=== PATIENT | female | born 1970 | race Asian ===

== ENCOUNTER → 2020-08-28 16:27 | Outpatient (CLI) | payer BC, SELFPAY ==
--- NOTE | ~2020-08-28 | MM_ITS ---
EXAMINATION: MM screening ilir BI w mina HISTORY: Screening TECHNIQUE: Craniocaudal and mediolateral oblique 3-D tomosynthesis images were obtained and synthetic 2-D images were generated. CAD analysis was submitted and interpreted. COMPARISON: Comparison to multiple prior studies sequentially, with oldest reviewed study dated 07/2013. BREAST PARENCHYMAL COMPOSITION: The breasts are extremely dense, which lowers the sensitivity of mamm ography FINDINGS: There is no evidence of suspicious mass, calcification, or architectural distortion to sugg est malignancy in either breast. There has been no suspicious interval change. IMPRESSION: 1. No mammographic evidence of malignancy. 2. Recommend routine screening mammography in one year. BI-RADS Category 1: Negative Reviewed, dictated and finalized at location A.
== END ==
PROVIDERS: Visit Provider Advanced Practice Midwife
DX: Z12.31 Encounter for screening mammogram for malignant neoplasm of breast (principal)
CPT/HCPCS: 77063; 77067

== ENCOUNTER → 2021-10-30 16:44 | Outpatient (CLI) | payer BC, SELFPAY ==
--- NOTE | ~2021-10-30 | MM_ITS ---
EXAMINATION: MM screening ilir BI w mina HISTORY: Screening mammogram, family history of breast cancer in her mother. TECHNIQUE: Craniocaudal and mediolateral oblique 3-D tomosynthesis images were obtained and synthetic 2-D images were generated. CAD analysis was submitted and interpreted. COMPARISON: 08/28/2020, 05/27/2019, 03/30/2018 BREAST PARENCHYMAL COMPOSITION: There are scattered areas of fibroglandular density. FINDINGS: There is no suspicious mass, calcification, or architectural distortion to suggest malignan cy in either breast. There has been no suspicious interval change. IMPRESSION: 1. No mammographic evidence of malignancy. 2. Recommend routine screening mammography in one year. BI-RADS Category 1: Negative Reviewed, dictated and finalized at location A.
== END ==
PROVIDERS: PCP Family Medicine Adolescent Medicine; Visit Provider Advanced Practice Midwife
DX: Z12.31 Encounter for screening mammogram for malignant neoplasm of breast (principal)
CPT/HCPCS: 77063; 77067

== ENCOUNTER 2021-12-18 08:32 | Outpatient (CLI) | payer BC, SELFPAY ==
--- NOTE | 2021-12-18 11:00 | NEURO_ITS ---
Impression: # Insulin dependent diabetic complains of numbness. # Bilateral Carpal Tunnel Syndrome, left more than right. # Right non-localizing ulnar neuropathy. # Mildly abnormal needle/EMG exam. Nerve Conduction Studies Anti Sensory Summary Table Stim Site NR Peak (ms) P-T Amp (?V) Site1 Site2 Delta-P (ms) Dist (cm) Maykel (m/s) Left Median Anti Sensory (2-3nd Digit) Wrist 5.3 11.3 Wrist 2-3nd Digit 5.3 14.0 26 Wrist 5.5 9.0 Wrist 2-3nd Digit 5.3 14.0 26 Right Median Anti Sensory (2-3nd Digit) Wrist 3.8 82.6 Wrist 2-3nd Digit 3.8 14.0 37 Wrist 4.0 92.5 Wrist 2-3nd Digit 3.8 14.0 37 Left Radial Anti Sensory (Base 1st Digit) Wrist 2.0 27.0 Wrist Base 1st Digit 2.0 0.0 Right Radial Anti Sensory (Base 1st Digit) Wrist 3.0 7.5 Wrist Base 1st Digit 3.0 0.0 Left Ulnar Anti Sensory (5th Digit) Wrist 3.0 36.8 Wrist 5th Digit 3.0 14.0 47 Right Ulnar Anti Sensory (5th Digit) Wrist 2.5 61.0 Wrist 5th Digit 2.5 14.0 56 Motor Summary Table Stim Site NR Onset (ms) O-P Amp (mV) Site1 Site2 Delta-0 (ms) Dist (cm) Maykel (m/s) Left Median Motor (Abd Poll Brev) Wrist 4.4 2.6 Elbow Wrist 5.3 29.0 55 Elbow 9.7 2.8 Right Median Motor (Abd Poll Brev) Wrist 3.7 1.9 Elbow Wrist 5.3 29.0 55 Elbow 9.0 1.3 Left Ulnar Motor (Abd Dig Minimi) Wrist 2.6 9.4 A Elbow Wrist 5.1 30.0 59 A Elbow 7.7 8.3 Right Ulnar Motor (Abd Dig Minimi) Wrist 2.0 9.5 A Elbow Wrist 5.9 29.0 49 A Elbow 7.9 8.3 B Elbow Wrist 3.9 18.0 46 B Elbow 5.9 8.2 F Wave Studies NR F-Lat (ms) L-R F-Lat (ms) Left Median (Mrkrs) (Abd Poll Brev) 27.73 0.00 Right Median (Mrkrs) (Abd Poll Brev) 27.73 0.00 Left Ulnar (Mrkrs) (Abd Dig Min) 27.74 0.11 Right Ulnar (Mrkrs) (Abd Dig Min) 27.85 0.11 EMG Side Muscle Nerve Root Ins Act Fibs Amp Dur Recrt Comment Right 1stDorInt Ulnar C8-T1 Nml Nml Nml >12ms Reduced Right Ext Indicis Radial (Post Int) C7-8 Nml Nml Nml Nml Nml Right Ext Digitorum Radial (Post Int) C7-8 Nml Nml Nml Nml Nml Right BrachioRad Radial C5-6 Nml Nml Nml Nml Nml Right PronatorTeres Median C6-7 Nml Nml Nml Nml Nml Right Abd Poll Brev Median C8-T1 Nml Nml Nml Nml Nml Left 1stDorInt Ulnar C8-T1 Nml Nml Nml Nml Nml Left Ext Indicis Radial (Post Int) C7-8 Nml Nml Nml Nml Nml Left Ext Digitorum Radial (Post Int) C7-8 Nml Nml Nml Nml Nml Left BrachioRad Radial C5-6 Nml Nml Nml Nml Nml Left PronatorTeres Median C6-7 Nml Nml Nml Nml Nml Left Abd Poll Brev Median C8-T1 Nml Nml Nml >12ms Reduced MTDD
== END 2021-12-18 08:33 | disposition home or self-care (01) ==
PROVIDERS: PCP Family Medicine Adolescent Medicine; Visit Provider Nurse Practitioner Family
DX: G62.9 Polyneuropathy, unspecified (principal); G56.20 Lesion of ulnar nerve, unspecified upper limb; G56.03 Carpal tunnel syndrome, bilateral upper limbs
CPT/HCPCS: 95886; 95911

== ENCOUNTER 2022-06-06 00:38 | Day surgery (SDC) | payer BC, SELFPAY ==
[2022-05-27 11:03] VITALS: BMI 22.4
[2022-06-06 09:28] VITALS: BP 116/60; PULSE 87; RESP 18; TEMP 36.4; O2SAT 100; BMI 22.6
[2022-06-06 09:39] LABS: Glucose Point of Care 70 mg/dl (65-105)
[2022-06-06] MEDS: LACTATED RINGERS 1,000 ML 150 ML IV CONT (09:47)
--- NOTE | 2022-06-06 09:48 | SUR.PREOP ---
Patient with blood glucose of 70. Wearing an insulin pump with basal rate. States 70 is not unusual and her blood glucose levels fluctuate all day and she does not turn off her basal rate. Patient states she is sometimes in the 60s and asymptomatic.
--- NOTE | 2022-06-06 09:49 | SUR.PREOP ---
Dr. Rueda notified of blood glucose of 70 and insulin pump.
--- NOTE | 2022-06-06 09:54 | WPDANESEPPF ---
Anes - Initial Pre Proc Eval Procedure: Operation Date: 06/06/22 10:45 Proposed Procedures p Screening Colonoscopy - Peewee Brewster MD Date/Time: 06/06/22 09:54 Surgeon: Peewee Breswter MD Pre Op Diagnosis: neoplasm screening Patient Data Age: 51 Gender: F Height: 1.6 m Weight: 58 kg Last Vital Signs Temp 36.4 C 06/06/22 09:28 Pulse 87 06/06/22 09:28 Resp 18 06/06/22 09:28 BP 116/60 06/06/22 09:28 Pulse Ox 100 06/06/22 09:28 O2 Del Method Room Air 06/06/22 09:28 Allergies Allergy/AdvReac Type Severity Reaction Status Date / Time doxycycline AdvReac Unknown Nausea Verified 06/06/22 09:27 Home Medications Medication Instructions Recorded Confirmed Type blood-glucose meter,continuous #1 ea 08/01/21 06/06/22 Rx (Dexcom G6 Senior Ui Ux Developer misc) blood-glucose transmitter (Dexcom #1 ea 08/01/21 06/06/22 Rx G6 Transmitter device) subcutaneous insulin pump (t:slim #1 ea 01/15/22 06/06/22 Rx X2 Basal-IQ Insulin Pump) insulin aspart U-100 100 unit/mL See Rx Instructions .Route 03/20/22 06/06/22 Rx subcutaneous solution (Novolog .COMPLEX #40 mL U-100 Insulin aspart) blood-glucose sensor (Dexcom G6 #9 ea 04/14/22 06/06/22 Rx Sensor device) biotin 2,500 mcg tablet 2,500 mcg PO DAILY 05/27/22 06/06/22 History cetirizine 10 mg tablet (Zyrtec) 10 mg PO DAILY PRN Allergy Symptoms 05/27/22 06/06/22 History cholecalciferol (vitamin D3) 25 25 mcg PO DAILY 05/27/22 06/06/22 History mcg (1,000 unit) tablet ferrous sulfate 325 mg (65 mg 325 mg PO DAILY 05/27/22 06/06/22 History iron) tablet (Iron (ferrous sulfate)) magnesium 250 mg tablet 250 mg PO DAILY 05/27/22 06/06/22 History multivitamin with minerals-folic 1 tablet PO DAILY 12/13/22 12/23/22 History acid 0.4 mg tablet omega-3 fatty acids-vitamin E 1 cap PO DAILY 05/27/22 06/06/22 History 1,000 mg capsule vitamin A 10,000 unit tablet 10,000 unit PO DAILY 05/27/22 06/06/22 History vitamin B complex 1 tablet PO DAILY 05/27/22 06/06/22 History vitamin E 100 unit tablet 100 unit PO DAILY 05/27/22 06/06/22 History zinc 100 mg tablet 100 mg PO DAILY 05/27/22 06/06/22 History Laboratory Tests 06/06/22 09:36 POC Capillary Glucose 70 mg/dl mg/dl (65-105) Patient hx anesthesia problems: none Family hx anesthesia problems: none Results Review: All pre-operative results and documents have been reviewed as part of the pre-operative evaluation. [facility] Past Medical History Medical History Bilateral carpal tunnel syndrome (~11/2021) Encounter for immunization Hyperlipidemia due to type 1 diabetes mellitus Long-term insulin use Neuropathy 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, with senior care current use of insulin pump Ulnar nerve abnormality Surgical History Surgical History No pertinent past surgical history Family History Family History Father Family history of diabetes mellitus in first degree relative Social History Social History Smoking packs per day: 0.25 Smoking cigarettes per day: 5.0 Years smoked: 10 Smoking pack-years: 2.50 Smoking status: Former smoker Tobacco type: cigarettes Second hand tobacco smoke exposure: No Alcohol intake: current Alcohol use details: occasional Substance use: never Substance use type: does not use Living arrangements: alone Gender identity (if verbalized by the patient): Female Spiritual care concerns: No Anes - Eval Final PreProcedure Day of Procedure 06/06/22 09:54 Patient weight: normal Heart: regular rate and rhythm Lungs: clear to auscultation Airway: Mallampati scale class II Neurological: alert and oriented Last oral intake: >/= 8 hours ASA classific
--- NOTE | 2022-06-06 10:15 | PM.HPGS ---
History of Present Illness History of Present Illness Consent: Risks, benefits, and alternatives have been discussed and questions answered. Patient agrees to proceed with procedure. Chief complaint: neoplasm screening Narrative: Beth Clayton is a 51 year old female here for first screening colonoscopy Review of Systems Constitutional: Constitutional: Denies headache(s) and Denies weakness Eyes: Eyes: Denies blurry vision ENT: Reports Normal hearing present, Denies headache(s) and Denies neck pain Cardiovascular: Cardiovascular: Denies chest pain and Denies dyspnea Respiratory: Respiratory: Denies dyspnea Gastrointestinal: Gastrointestinal: Reports no additional gastrointestinal complaints Genitourinary: Genitourinary: Denies dysuria Musculoskeletal: Musculoskeletal: Denies neck pain Integumentary/Breasts: Skin/Breast: Denies dry skin Neurologic: Reports Normal hearing present, Denies headache(s) and Denies weakness Psychiatric: Psychiatric: Denies anxiety Endocrine: Endocrine: Denies change in body appearance Hematologic/Lymphatic: Hematologic/Lymphatic: Denies easy bleeding Allergic/Immunologic: Allergic/Immunologic: Denies urticaria PMF Past Medical History Medical History (Updated 06/06/22 @ 10:15 by Peewee Brewster MD) Bilateral carpal tunnel syndrome (~11/2021) Colon cancer screening Encounter for immunization Hyperlipidemia due to type 1 diabetes mellitus Long-term insulin use Neuropathy 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, 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 Ulnar nerve abnormality Surgical History Surgical History No pertinent past surgical history Family History Family History Father Family history of diabetes mellitus in first degree relative Social History Social History Smoking packs per day: 0.25 Smoking cigarettes per day: 5.0 Years smoked: 10 Smoking pack-years: 2.50 Smoking status: Former smoker Tobacco type: cigarettes Second hand tobacco smoke exposure: No Alcohol intake: current Alcohol use details: occasional Substance use: never Substance use type: does not use Living arrangements: alone Gender identity (if verbalized by the patient): Female Spiritual care concerns: No Meds Home Medications and Allergies Home Medications Medication Instructions Recorded Confirmed Type blood-glucose meter,continuous #1 ea 08/01/21 06/06/22 Rx (Dexcom G6 Broadband Engineer misc) blood-glucose transmitter (Dexcom #1 ea 08/01/21 06/06/22 Rx G6 Transmitter device) subcutaneous insulin pump (t:slim #1 ea 01/15/22 06/06/22 Rx X2 Basal-IQ Insulin Pump) insulin aspart U-100 100 unit/mL See Rx Instructions .Route 03/20/22 06/06/22 Rx subcutaneous solution (Novolog .COMPLEX #40 mL U-100 Insulin aspart) blood-glucose sensor (Dexcom G6 #9 ea 04/14/22 06/06/22 Rx Sensor device) biotin 2,500 mcg tablet 2,500 mcg PO DAILY 05/27/22 06/06/22 History cetirizine 10 mg tablet (Zyrtec) 10 mg PO DAILY PRN Allergy Symptoms 05/27/22 06/06/22 History cholecalciferol (vitamin D3) 25 25 mcg PO DAILY 05/27/22 06/06/22 History mcg (1,000 unit) tablet ferrous sulfate 325 mg (65 mg 325 mg PO DAILY 05/27/22 06/06/22 History iron) tablet (Iron (ferrous sulfate)) magnesium 250 mg tablet 250 mg PO DAILY 05/27/22 06/06/22 History multivitamin with minerals-folic 1 tablet PO DAILY 05/27/22 06/06/22 History acid 0.4 mg tablet omega-3 fatty acids-vitamin E 1 cap PO DAILY 05/27/22 06/06/22 History 1,000 mg capsule vitamin A 10,000 unit tablet 10,000 unit PO DAILY 05/27/22 06/06/22 History vitamin B complex 1 tablet PO DAILY 05/27/22 06/06/22 History vitamin E 100 unit tablet 100 unit PO DAILY 05/27/22 06/06/22 History zinc 100 mg tablet 100 mg PO DAILY 05/15
[2022-06-06 10:47] VITALS: BP 97/52; PULSE 83; RESP 21; O2SAT 100
[2022-06-06 10:57] VITALS: BP 103/63; PULSE 82; RESP 16; O2SAT 100
[2022-06-06 11:07] VITALS: BP 111/52; PULSE 75; RESP 12; O2SAT 100
--- NOTE | 2022-06-06 11:10 | SUR.PHASEII ---
BS POST OP 88 PER PT DEXCOM
== END 2022-06-06 11:14 | disposition home or self-care (01) ==
PROVIDERS: PCP Family Medicine Adolescent Medicine; Visit Provider Internal Medicine Gastroenterology
PROC: 0DJD8ZZ Inspection of Lower Intestinal Tract, Via Natural or Artificial Opening Endoscopic (ICD-10-PCS; CPT 45378; principal; 2022-06-06 10:45)
DX: Z12.11 Encounter for screening for malignant neoplasm of colon (principal); K64.8 Other hemorrhoids; E10.40 Type 1 diabetes mellitus with diabetic neuropathy, unspecified; E78.5 Hyperlipidemia, unspecified; Z87.891 Personal history of nicotine dependence; Z79.4 Long term (current) use of insulin; Z96.41 Presence of insulin pump (external) (internal)
CPT/HCPCS: 45378; 82948; J2704; J7120

== ENCOUNTER → 2023-06-10 11:23 | Outpatient (CLI) | payer BC, SELFPAY ==
--- NOTE | ~2023-06-10 | XR_ITS ---
EXAMINATION: XR shoulder LT min 2V DATE: 06/10/2023 11:49 INDICATION: Left shoulder pain. TECHNIQUE: 4 views of left shoulder were obtained. COMPARISON: None. FINDINGS: Bone alignment is normal. No fracture. There is mild osteoarthritis of acromioclavicular luis eduardo int. Glenohumeral joint is normal. IMPRESSION: 1. Mild acromioclavicular joint osteoarthritis. Reviewed, dictated and finalized at location E. D TRAINING MANAGER
== END ==
PROVIDERS: PCP Nurse Practitioner Family; Visit Provider Nurse Practitioner Family
DX: M19.012 Primary osteoarthritis, left shoulder (principal)
CPT/HCPCS: 73030

== ENCOUNTER 2023-08-21 16:05 | Outpatient (CLI) | payer BC, SELFPAY ==
--- NOTE | ~2023-08-21 | XR_ITS ---
EXAMINATION: XR hand RT 2V DATE: 08/21/2023 16:30 INDICATION: Pain in joints of right hand. TECHNIQUE: 2 views of right hand were obtained. COMPARISON: None. FINDINGS: Bone alignment is normal. No fracture. There is a 5 mm nonaggressive lytic lesion in lunate , likely an enchondroma, ganglion cyst, or subchondral cyst. There is mild osteoarthritis of second a nd third metacarpophalangeal joints and moderate osteoarthritis of first interphalangeal joint. IMPRESSION: 1. Polyarticular osteoarthritis. Reviewed, dictated and finalized at location E. GION TEACHER
== END 2023-08-21 16:06 | disposition home or self-care (01) ==
LOC: ANHIMG 16:12
PROVIDERS: PCP Nurse Practitioner Family; Visit Provider Nurse Practitioner Family
DX: M19.041 Primary osteoarthritis, right hand (principal)
CPT/HCPCS: 73120

== ENCOUNTER 2023-09-30 15:52 | Outpatient (CLI) | payer BC, SELFPAY ==
--- NOTE | ~2023-09-30 | MM_ITS ---
EXAMINATION: MM screening ilir BI w mina HISTORY: Screening TECHNIQUE: Craniocaudal and mediolateral oblique 3-D tomosynthesis images were obtained and synthetic 2-D images were generated. CAD analysis was submitted and interpreted. COMPARISON: Comparison to multiple prior studies sequentially, with oldest reviewed study dated 05/15. BREAST PARENCHYMAL COMPOSITION: Dense: The breasts are extremely dense, which lowers the sensitivity of mammography. FINDINGS: There is no evidence of suspicious mass, calcification, or architectural distortion to sugg est malignancy in either breast. There has been no suspicious interval change. IMPRESSION: 1. No mammographic evidence of malignancy. 2. Recommend routine screening mammography in one year. BI-RADS Category 1: Negative Reviewed, dictated and finalized at location B.
== END 2023-09-30 15:53 ==
LOC: MICIMG 15:53
PROVIDERS: PCP Nurse Practitioner; Visit Provider Nurse Practitioner
DX: Z12.31 Encounter for screening mammogram for malignant neoplasm of breast (principal)
CPT/HCPCS: 77063; 77067

== ENCOUNTER 2024-10-14 12:31 | Emergency (ER) | payer BC, SELFPAY ==
--- NOTE | 2024-10-14 12:32 | PC.NURSE ---
pt blood sugar taken upon arrival to ED blood sugar - 19
[2024-10-14 12:34] VITALS: BP 129/75; PULSE 94; RESP 18; TEMP 36.6; O2SAT 100
[2024-10-14] MEDS: DEXTROSE 50% 25 GM/50 ML SYRINGE IV PUSH (12:35)
--- NOTE | 2024-10-14 12:57 | ED_ITS ---
HPI - General Adult General Chief complaint: Recheck/Abnormal Lab/Rx Stated complaint: low bg Time Seen by Provider: 10/14/24 12:44 History of Present Illness HPI narrative: 53-year-old female that is type 2 diabetic with a Dexcom pump and monitor presents emergency department for evaluation after having a syncopal episode of about visiting her mother that is currently admitted to the hospital. Patient was found have a blood sugar 19 when she was evaluated. Patient's insulin pump was removed. Patient was transported to the emergency department on a gurney and when she arrives she was treated with a hypoglycemic protocol. At time of initial evaluation patient is more appropriate. Patient states her blood sugars have been fluctuating frequently. Patient denies any recent illness. Patient states that she has had increased stress because her mother is currently admitted. At time of evaluation patient is alert oriented and clinically appropriate. Patient denies any complaints at this time. Related Data Home Medications ?Medication ?Instructions ?Recorded ?Confirmed ?Last Taken ?Type biotin 2,500 mcg tablet 2,500 mcg PO DAILY 05/27/22 08/02/24 Unknown History cholecalciferol (vitamin D3) 25 25 mcg PO DAILY 05/27/22 08/02/24 Unknown History mcg (1,000 unit) tablet ferrous sulfate 325 mg (65 mg 325 mg PO DAILY 05/27/22 08/02/24 Unknown History iron) tablet (Iron (ferrous sulfate)) magnesium 250 mg tablet 250 mg PO DAILY 05/27/22 08/02/24 Unknown History multivitamin with minerals-folic 1 tablet PO DAILY 05/27/22 08/02/24 Unknown History acid 0.4 mg tablet vitamin A 10,000 unit tablet 10,000 unit PO DAILY 05/27/22 08/02/24 Unknown History vitamin B complex 1 tablet PO DAILY 05/27/22 08/02/24 Unknown History vitamin E 100 unit tablet 100 unit PO DAILY 05/27/22 08/02/24 Unknown History zinc 100 mg tablet 100 mg PO DAILY 05/27/22 08/02/24 Unknown History cetirizine 10 mg tablet (Zyrtec) 10 mg PO QAM AND QHS PRN Allergy 05/10/24 08/02/24 Unknown History Symptoms krill oil 500 mg capsule mg PO 05/10/24 08/02/24 Unknown History magnesium gluconate 29.25 mg (500 29.3 mg PO DAILY 05/10/24 08/02/24 Unknown History mg) tablet triamcinolone acetonide 0.1 % 1 applic topical BID PRN 08/02/24 08/02/24 Unknown History topical cream Allergies Allergy/AdvReac Type Severity Reaction Status Date / Time doxycycline AdvReac Unknown Nausea Verified 08/02/24 15:49 Review of Systems 2 Review of Systems: All systems reviewed & are unremarkable except as noted in HPI and below PMFSH Past Medical History Medical History Colon cancer screening Encounter for immunization Bilateral carpal tunnel syndrome (~11/2021) Neuropathy Ulnar nerve abnormality Hyperlipidemia due to type 1 diabetes mellitus Long-term insulin use 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, with intermediate designer current use of insulin pump Surgical History Surgical History H/O colonoscopy No pertinent past surgical history Family History Family History Father Family history of diabetes mellitus in first degree relative Social History Social History Smoking packs per day: 0.25 Smoking cigarettes per day: 5.0 Years smoked: 10 Smoking pack-years: 2.50 Smoking status: Former smoker Tobacco type: cigarettes Second hand tobacco smoke exposure: No Alcohol intake: current Alcohol use details: occasional Substance use: never Substance use type: does not use Do You Feel Safe in your Home?: Yes Lack of Transportation: No Lack of Food: Never True Current Housing: I Have Housing Concerned About Future Housing: No Difficulty Paying Gas/Electric Bills: No Difficulty Paying for Meds: No Currently Unemployed: No Education: High School Diploma/GED Difficulty w/ Childcare or Family Care: No Living arrangements: alone Occupation/Education: occupation Gender identity (if verbalized by the patient): Female Spiritual care concerns: No Exam 2 Narrative: APPEARANCE: Well appearing, no pain, no distress, well-nourished. HEAD: normocephalic, atraumatic. EYES: PERRLA/EOMI, conjunctivae clear. NOSE: Normal no drainage EARS:TMS clear with good light reflex. THROAT: Pharynx clear, no exudate. NECK: Supple. No adenopathy, no masses. RESPIRATORY: Airway patent, respirations nonlabored. Clear to auscultation bilaterally, no rales, rhonchi, wheezing. CARDIOVASCULAR: Regular rate and rhythm without murmurs rubs or gallops. ABDOMINAL: Soft, nontender, nondistended, normal bowel sounds MUSCULOSKELETAL: Moves all extremities. Strength/ROM intact, No edema, No calf tenderness. NEURO: Alert. Cranial nerves II through XII intact. Good gait. Good coordination SKIN: Warm, dry. Normal Color PSYCHIATRIC: Normal affect/mood. Course Vital Signs Vital signs: Vital Signs Temperature 97.8 F 10/14/24 12:34 Pulse Rate 94 10/14/24 12:34 Respiratory Rate 18 10/14/24 12:34 Blood Pressure 129/75 10/14/24 12:34 Pulse Oximetry 100 10/14/24 12:34 Oxygen Delivery Room Air 10/14/24 12:34 Temperature 98.0 F 10/14/24 14:38 Pulse Rate 80 10/14/24 14:38 Respiratory Rate 18 10/14/24 14:38 Blood Pressure 147/90 H 10/14/24 14:38 Pulse Oximetry 100 10/14/24 14:38 Oxygen Delivery Room Air 10/14/24 12:34 Medical Decision Making MDM Narrative Medical decision making narrative: 53-year-old female presented to the emergency department for evaluation for episode of hypoglycemia. Patient does have a Dexcom on her place even the her pump was removed and patient's most recent blood sugar just prior to discharge was 130. Patient states that it did go up to 212 after she ate and is now coming back down and patient states that she does feel significantly improved and patient is well-appearing on final examination. Patient is currently afebrile with no leukocytosis and hemoglobin of 13.0. Patient has no anion gap and no evidence DKA. Patient does have nitrate positive, leukocyte esterase positive, white blood cells and high bacteria in her urine. Patient was started on a dose of IV Rocephin in the emergency department and patient will be discharged home p.o. Keflex. Patient was updated results of workup she was comfortable with plan for discharge and close follow-up. Differential Diagnosis Differential Diagnosis: Pump malfunction, decreased p.o. intake, hypoglycemia, urinary tract infection Vital Signs Vital Signs: Vital Signs Temperature 97.8 F 10/14/24 12:34 Pulse Rate 94 10/14/24 12:34 Respiratory Rate 18 10/14/24 12:34 Blood Pressure 129/75 10/14/24 12:34 Pulse Oximetry 100 10/14/24 12:34 Oxygen Delivery Room Air 10/14/24 12:34 Temperature 98.0 F 10/14/24 14:38 Pulse Rate 80 10/14/24 14:38 Respiratory Rate 18 10/14/24 14:38 Blood Pressure 147/90 H 10/14/24 14:38 Pulse Oximetry 100 10/14/24 14:38 Oxygen Delivery Room Air 10/14/24 12:34 Lab Data Lab results reviewed: Yes I reviewed the patient's lab results. 10/14/24 13:14 10/14/24 13:14 Labs: Lab Results 10/14/24 10/14/24 10/14/24 Range/Units 12:59 13:14 13:52 WBC 6.2 (4.5-10.0) K/mm3 RBC 4.28 (4.2-5.4) M/mm3 Hgb 13.0 (12.0-15.0) g/dL Hct 41.2 (37.0-47.0) % MCV 96.3 (80-100) fl MCH 30.4 (26-34) pg MCHC 31.6 L (32-36) g/dl RDW 11.9 (11.5-14.5) % Plt Count 224 (150-375) k/mm3 MPV 10.0 (7.4-10.4) fl Immature Gran % (Auto) 0.2 (0-0.5) % Neut % (Auto) 66.9 (45.5-73.1) % Lymph % (Auto) 21.7 (18.3-44.2) % [place] % (Auto) 6.9 (2.6-8.5) % Eos % (Auto) 3.5 (0-4.4) % Baso % (Auto) 0.8 (0.2-1.2) % Lymph # (Auto) 1.35 (0.9-3.2) K/mm3 [place] # (Auto) 0.4 (0.1-0.6) K/mm3 Eos # (Auto) 0.2 (0-0.3) K/mm3 Baso # (Auto) 0.1 (0.0-0.1) K/mm3 Abs Immat Gran (auto) 0.01 (0.00-0.031) K/mm3 Absolute Neuts (auto) 4.2 (1.3-6.7) K/mm3 Absolute Nucleated RBC 0.000 (0.0-0.012) K/mm3 Nucleated RBC % 0.0 (0.0-0.2) % Sodium 142 (137-145) mmol/L Potassium 2.9 L (3.4-5.0) mmol/L Chloride 103 (98-107) mmol/L Carbon Dioxide 30 (22-30) mmol/L Anion Gap 9 (4-12) mmol/L BUN 19 H (7-17) mg/dL Creatinine 0.55 L (0.7-1.0) mg/dL Estim Creat Clear Calc 83 ml/min Estimated GFR > 60 (59 - ) Glucose 111 H (65-110) mg/dL POC Capillary Glucose 107 H (65-105) mg/dl Calcium 8.8 (8.4-10.2) mg/dL Urine Color Yellow (Yellow) Urine Appearance Clear (Clear) Urine pH 6.5 (5.0-9.0) Ur Specific [place] 1.014 (1.001-1.035) Urine Protein Negative (Negative) mg/dL Urine Glucose (UA) Trace H (Negative) mg/dL Urine Ketones Negative (Negative) mg/dL Ur Blood (Man) Negative (Negative) Urine Nitrate Positive H (Negative) Urine Bilirubin Negative (Negative) Urine Urobilinogen 0.2 (<2.0) mg/dL Leukocyte Esterase Rfl 1+ H (Negative) EDGARD/UL Urine RBC 0-2 (0-2) /hpf Urine WBC 6-10 H (0-3) /hpf Ur Squamous Epith Cells None seen (Few) /hpf Urine Bacteria 4+ H /hpf Urine Casts 0-2 Discharge Plan Discharge Clinical Impression: Hypoglycemia due to type 1 diabetes mellitus, Urinary tract infection Patient Disposition: Home Condition: Stable Instructions: Antibiotic Form, Urinary Tract Infection in Women (DC) Additional Instructions: Be sure that you are eating a well-balanced diabetic diet. Drink plenty of water. Antibiotic as directed until completed for the urinary tract infection. Have close follow-up with your primary care physician. If you have any worsening symptoms then please call or return to the emergency department. Patient Language: Persian Prescriptions: New cephalexin 500 mg capsule 500 mg PO Q8H 7 Days Qty: 21 0RF No Action (DME) t:slim X2 Basal-IQ Insulin Compositor Apprentice Misc See Rx Instructions .Route Qty: 1 0RF Rx Instructions: As directed magnesium gluconate 29.25 mg (500 mg) tablet 29.3 mg PO DAILY krill oil 500 mg capsule PO triamcinolone acetonide 0.1 % cream 1 applic topical BID PRN zinc 100 mg Tablet 100 mg PO DAILY ferrous sulfate [Iron (ferrous sulfate)] 325 mg (65 mg iron) Tablet 325 mg PO DAILY vitamin B complex [Super B Complex] Tablet 1 tablet PO DAILY magnesium 250 mg Tablet 250 mg PO DAILY vitamin A 10,000 unit Tablet 10,000 unit PO DAILY vitamin E 100 unit Tablet 100 unit PO DAILY biotin 2,500 mcg Tablet 2,500 mcg PO DAILY cholecalciferol (vitamin D3) 25 mcg (1,000 unit) Tablet 25 mcg PO DAILY multivit with min-folic acid [Adult One Daily Multivitamin] 0.4 mg Tablet 1 tablet PO DAILY cetirizine [Zyrtec] 10 mg tablet 10 mg PO QAM AND QHS PRN (Reason: Allergy Symptoms) insulin aspart U-100 [Novolog U-100 Insulin aspart] 100 unit/mL solution See Rx Instructions .ROUTE .COMPLEX Qty: 40 3RF Dose Instruction: INJECT 30-40 UNITS SUBCUTANEOUSLY EVERY DAY VIA INSULIN PUMP Rx Instructions: INJECT 30-40 UNITS SUBCUTANEOUSLY EVERY DAY VIA INSULIN PUMP (DME) Dexcom G7 Sensor Device See Rx Instructions .Route Qty: 9 0RF Rx Instructions: change every 10 days Follow-up/Referrals: PHYSICIAN NOT ON STAFF,NONSTAFF [Non-Staff] -
[2024-10-14 13:02] LABS: Glucose Point of Care 107 mg/dl (65-105)
[2024-10-14 13:05] VITALS: RESP 16; O2SAT 99
[2024-10-14 13:19] LABS: Basophils Absolute Auto 0.1 K/mm3 (0.0-0.1); Basophils Percent Auto 0.8 % (0.2-1.2); Eosinophils Absolute Auto 0.2 K/mm3 (0-0.3); Eosinophils Percent Auto 3.5 % (0-4.4); Hematocrit 41.2 % (37.0-47.0); Immature Granulocyte Absolute 0.01 K/mm3 (0.00-0.031); Immature Granulocyte Percent A 0.2 % (0-0.5); Lymphocytes Absolute Auto 1.35 K/mm3 (0.9-3.2); Lymphocytes Percent Auto 21.7 % (18.3-44.2); Mean Corpuscular HGB Conc 31.6 g/dl (32-36); Mean Corpuscular Hemoglobin 30.4 pg (26-34); Mean Corpuscular Volume 96.3 fl (80-100); Monocytes Absolute Auto 0.4 K/mm3 (0.1-0.6); Monocytes Percent Auto 6.9 % (2.6-8.5); Neutrophils Absolute Auto 4.2 K/mm3 (1.3-6.7); Neutrophils Percent Auto 66.9 % (45.5-73.1); Platelet Count Result 224 k/mm3 (150-375); Red Blood Count 4.28 M/mm3 (4.2-5.4); Red Cell Distribution Width 11.9 % (11.5-14.5); White Blood Count 6.2 K/mm3 (4.5-10.0)
[2024-10-14 13:28] LABS: Anion Gap 9 mmol/L (4-12); Blood Urea Nitrogen 19 mg/dL (7-17); Calcium 8.8 mg/dL (8.4-10.2); Carbon Dioxide 30 mmol/L (22-30); Chloride 103 mmol/L (98-107); Estimated CRCL calculation 83 ml/min; Estimated Glomerular Filt Rate > 60; Glucose 111 mg/dL (65-110); Potassium 2.9 mmol/L (3.4-5.0); Sodium 142 mmol/L (137-145)
[2024-10-14 14:03] LABS: Add Urine Microscopic? YES; Appearance Urine Clear (Clear); Bacteria Urine 4+ /hpf; Bilirubin Urine Negative (Negative); Blood Urine Negative (Negative); Color Urine Yellow (Yellow); Glucose Urine UA Trace mg/dL (Negative); Ketones Urine Negative (Negative); Leukocyte Esterase Ur 1+ LEU/UL (Negative); Nitrate Urine Positive (Negative); Non Pathogenic Casts 0-2; Protein Urine Negative (Negative); RBC Urine 0-2 /hpf (0-2); Specific Grav Ur 1.014 (1.001-1.035); Squamous Epithelial Cell Urine None Seen /hpf (Few); Urobilinogen Urine 0.2 mg/dL (<2.0); pH Urine 6.5 (5.0-9.0)
[2024-10-14 14:38] VITALS: BP 147/90; PULSE 80; RESP 18; TEMP 36.7; O2SAT 100
--- OUTSIDE RECORDS SUMMARY | 2024-10-15 13:13 | XMS_ITS | Data Portability ---
Author Organization [facility] [place] Address [address] [place] [address] [address] Care Team Providers Care Spray Dyer Name Role Phone KAREN ALAMO Primary Care Provider Assessment Encounter Date Assessment Date Assessment LastModified by Organization Details LastModified Time 06/11/2023 06/11/2023 Annual gynecological exam performed. Patient will come back in a year unless there are new symptoms. [email or web address] Not available 06/11/2023 16:31:39 Plan of Treatment Reminders Order Date Submit Date Provider Last Modified By Organization Details Last Modified Time Details Appointments None recorded. Lab test, urine 2022 023 loren [facility], [address], [place], [address], 13:34:16 Referral None recorded. Procedures None recorded. Surgeries hysteroscop y, surgical, with biopsy of endometrium and/or polypectomy (SURG) 2022 023 [id number] [facility], [address], [place], [address], 3 10:59:42 Imaging MAMMO, screening, digital, bilateral 2022 023 LANDON [facility], [address], [place], [address], 4 17:48:19 US, pelvis 2022 023 [email or web address] [facility], [address], [place], [address], 3 20:57:19 US, transvagina l 2022 023 [email or web address] [facility], [address], [place], [address], 3 20:57:19 Medication Orders None recorded. Patient TargetsNo targets recorded. Patient InstructionsNo instructions recorded. Reason for Referral None Reported. Results Created Date Observation Date Name Description Value Unit Range Abnormal Flag Note LastModifiedBy Organization Detail LastModifiedTime 11/22/1911/21/2022 SURGI GUERO PATHO LOGY surgical pathology SEE RESULT S BELOW CASE REPOR T: Surgi guero Patho logy Repor t Case: Autho leobardo coyle Provi michelle: Julio Simmons MD Colle cted: 11/21 1626 Order ing Locat ion: [place] [facility] Recei nikos: 11/22 0245 Patho logis t: Justin Stevenson MD Speci men: Endom etriu m, Endom etria l polyp FINAL DIAGN OSIS: Endom etriu m, polyp ectom y: -Brian gn endom etria l polyp . Elect ochoa ramirez by Justin Stevenson MD on 2022 at 9:09 AM ----- ----- ----- ----- ----- ----- ----- ----- ----- ----- ----- ----- ----- ----- ----- ----- ----- ---- CLINI GUERO INFOR MATIO N: n85.9 MICRO SCOPI C DESCR IPTIO N: A micro scopi c exami natio n was perfo rmed. GROSS DESCR IPTIO N: A. Endom etriu m. The speci men is recei nikos in forma armand label ed with the patie nt's name, demog raphjs cs, and endo metri al polyp . It consi sts of a haley-p ink, polyp oid, intac t soft tissu e fragm ent measu ring 1.2 x 0.9 x 0.8 cm. The speci men is trise cted and submi tted entir umang in casse tte A1. Gross ed by Daniel Morejon Not Available [facility] (Lab) [address], [place], [address], 11/24/2022 10:12:12 11/22/19 23 11/21/2022 pregn krunal test, urine HCG negati ve Not Available [facility] [address], [place], [address], 11/21/2022 13:33:52 06/11/20 23 06/11/2023 IMAGE GUIDE D PAP AND HPV REGAR DLESS image guided Pap, HPV regardless of Pap result SEE RESULT S BELOW CASE REPOR T: Cytol ogy Gynec ologi guero Repor t Case: [id number] Autho leobardo g Provi michelle: Saba Coats, HEBERT Colle cted: 06/11 1711 Order ing Locat ion: [place] Patho logy Recei nikos: 06/12 0856 First Scree n: Hawa Lam, CT Speci men: Scree katty Pap - Image d, Cervi x STATE MENT OF ADEQU ACY: Satis facto ry for evalu ation Trans forma tion zone compo nent prese nt FINAL DIAGN OSIS: Negat jumana for Intra epith elial Lessheri n or Paola zarate (NIL) . Wilian lowry garth d by Hawa Lam, CT on 024 at 10:13 AM ----- ----- ----- ----- ----- ----- ----- ----- ----- ----- ----- ----- ----- ----- ----- ----- ----- ---- HPV RESUL TS: HPV mRNA E6/E7 : No HPV mRNA Detec breanna NOTE: This high risk HPV mRNA assay detec ts fourt een high- risk HPV types (16, 18, 31, 33, 35, 39, 45, 51, 52, 56, 58, 59, 66, 68) witho ut diffe renti ation . COMME NT: This speci men was revie wed by a Cytot echno logis t and/o r Patho logis t (as indic ated in this repor t) after evalu ation using the Thinp rep Imagi ng Syste m. CLINI GUERO INFOR MATIO N: Menst rual Statu s: LMP (if appli cable ): Clini guero Histo ry/Pr eviou s Pap: Type of Neopl johnny (if appli cable ): Signi fican t Clini guero Findi ngs: Other Histo ry: Hormo hugh (if appli cable ): PAP EDUCA SEVERO L NOTE: The Pap Test is a scree katty test with an inher ent false negat jumana rate. Liqui d-bas ed sampl ing may decre ase, but will not elimi bradley, false negat jumana resul ts. A negat jumana resul t does not precl ude the prese nce and/o r devel opmen t of disea se, since the prese nce of abnor mal cells in the sampl e depen ds on the locat ion of the lesio n and sampl ing techn ique. Terrance nued regul ar scree katty is the best metho d of cance r preve ntion . If repor breanna cytol ogic findi ng do not corre late with physi guero and/o r histo rical findi ngs, furth er inves tigat ion is recom gustavo d, as clini joselin duggan nted. Not Available [facility] (Lab) [address], [place], [address], 06/16/2023 11:16:58 07/22/19 23 07/22/2022 US, pelvi s No observ ation record ed. [email or web address] [facility] [address], [place], [address], 07/22/2022 18:13:14 07/22/19 23 07/22/2022 US, trans vagin al No observ ation record ed. [email or web address] [facility] [address], [place], [address], 07/22/2022 18:13:06 07/22/19 23 07/22/2022 US, pelvi s No observ ation record ed. [email or web address] [facility] [address], [place], [address], 07/24/2022 11:34:17 09/30/19 24 09/30/2023 MAMMO , scree katty, digit al, bilat eral No observ ation record ed. LANDON [facility] [address], [place], [address], 04/29/2024 03:57:45 Result Notes None recorded. 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 16:30:35 Screenin g for malignan t neoplasm of rectum Completed 201511/23/2020 Encounte r for screenin g for malignan t neoplasm of rectum;P ractice ID: 0001 Erin lee [facility] 16:30:31 Polyp of cervix [id number] Completed 201711/23/2020 Polyp of cervix uteri;Pr actice ID: 0001 Erin lee [facility] 16:30:26 Atypical squamous cells of undeterm ined signific ance on cervical Papanico laou smear [id number] Completed 201711/23/2020 Atyp squam cell of undet signfc cyto smr crvx (ASC-US) ;Practic e ID: 0001 Erin Kike lee, [facility] 16:30:17 Pelvic and perineal pain [id number] Completed 201911/23/2020 Pelvic and perineal pain;Pra ctice ID: 0001 Eirn Kike jesus, [facility] 16:30:24 Cytologi c finding [id number] Completed 201111/23/2020 Papanico laou smear of cervix with low grade squamous intraepi thelial lesion (LGSIL); Recorded Elsewher e: No Locat ion: [facility] S ource: EHR Recreation Attendant Supervisor keshav: Charlee Tiwari ce ID: 0001 Ludin lable Time: 03:00:00 PM Erin Stokes [facility] 16:30:[address] Concept Completed 201811/23/2020 Encntr for general adult medical exam w/o abnormal findings ;Recorde d Elsewher e: No Locat ion: [facility] S ource: [facility] Recreation Attendant Supervisor keshav: N Te ce ID: 0001 Ludin lable Time: 03:30:00 PM Erin lee [facility] 16:30:33 Postcoit al bleeding [id number] Completed 201111/23/2020 Postcoit al bleeding ;Recorde d Elsewher e: No Locat ion: [facility] S ource: EHR Recreation Attendant Supervisor keshav: N Te ce ID: 0001 Ludin lable Time: 02:45:00 PM Erin lee [facility] 16:30:27 Vaginiti s and vulvovag initis Completed 201011/23/2020 Vaginiti s and vulvovag initis, unspecif ied;Prac viktor ID: 0001 Erin Kike lee [facility] 16:30:38 Glycosur ia [id number] Completed 201011/23/2020 Glycosur ia;Pract ice ID: 0001 Erin lee [facility] 16:30:21 Speciali zed medical examinat ion Completed 201011/23/2020 Routine gynecolo gical examinat ion;Prac viktor ID: 0001 [facility] 16:30:37 Screenin g for malignan t neoplasm of cervix Completed 201011/23/2020 Pap Smear;Pr actice ID: 0001 Erin lee, [facility] 16:30:29 Adult health examinat ion Completed 201411/23/2020 Routine general medical examinat ion at a health care facility ;Practic e ID: 0001 Erin Stokes [facility] 16:30:15 Problem Notes None recorded. Procedures Surgical History Date Name Laterality Status Provider Name and Address Organization Details Recorded Time 11/22/19 23 Endometrial Ablation with Hysteroscopy completed Sandeep Simmons MD [address], [place], [address], [facility] 11/21/2022 15:28:14 11/22/19 23 Endometrial Ablation completed Paige Long [facility] 11/26/2022 17:24:57 10/31/19 22 Date of Last Mammogram completed Karon Peguero [facility] 01/13/2022 16:40:34 11/24/19 21 Date of Last Pap Smear completed Erin Stokes [facility] 11/23/2020 16:31:02 06/15/18 94 Tubal Ligation completed Erin Stokes [facility] 10/07/2019 18:29:45 Imaging Results Imaging Date Name Status LastModified by Organization Details LastModified Time 07/22/2022 US, pelvis completed [email or web address] [facility] [address], [place], [address], 07/22/2022 18:13:14 07/22/2022 US, transvaginal completed [email or web address] [facility] [address], [place], [address], 07/22/2022 18:13:06 07/22/2022 US, pelvis completed [email or web address] [facility] [address], [place], [address], 07/24/2022 11:34:17 09/30/2023 MAMMO, screening, digital, bilateral completed [facility] [address], [place], [address], 04/29/2024 03:57:45 Procedure Notes None recorded. Medical Equipment None Reported. Allergies No known drug allergies Medications Name Sig Start Date Stop Date Status Note LastModified by Organization Details LastModified Time cyclobenz aprine 10 mg tablet active Not Available Not Available No t Available Chlor-Tri meton 4 mg tablet take 1 tablet by oral route every 4 hours as needed 01/13 completed Prescrib ed Elsewher e: Yes Loca tion: [facility] M odify By: valery Montes ncounter DateTime : 02/11/20 18 03:15:00 PM Not Available Not Available Not Available azithromy wayne 250 mg tablet TAKE 2 TABLETS BY MOUTH TODAY, THEN TAKE 1 TABLET DAILY FOR 4 DAYS 07/17 completed Not Available Not Available Not Available ibuprofen 800 mg tablet TAKE 1 TABLET 2 HOURS BEFORE THE PROCEDUR E. 11/26 completed Not Available Not Available Not Available Lotrisone 1 %-0.05 % topical cream apply by topical route 2 times every day for 2 weeks to the affected and surround ing areas of skin in the morning and evening 04/28 completed Prescrib ed Elsewher e: No Locat ion: [facility] odify By: leslie Mendozaou nter DateTime : 04/15/20 11 03:00:00 PM Not Available Not Available Not Available ondansetr on HCl 8 mg tablet TAKE 1 TABLET 2 HOURS BEFORE THE PROCEDUR E. 11/26 completed Not Available Not Available Not Available fluconazo le 200 mg tablet take 1 tablet by oral route every other day x 3 doses. 10/06 completed Not Available Not Available Not Available Diflucan 150 mg tablet take 1 tablet (150MG) by oral route once 03/31 completed Prescrib ed Elsewher e: No Locat ion: [facility] odify By: ray hernandez DateTime : 04/15/20 11 03:00:00 PM Not Available Not Available Not Available metronida zole 500 mg tablet take 1 tablet by oral route every 12 hours 10/06 completed Not Available Not Available Not Available hydrocodo ne 10 mg-acetam inophen 325 mg tablet TAKE 1 TABLET 2 HOURS BEFORE THE PROCEDUR E. 11/26 completed Not Available Not Available Not Available triamcino lone acetonide 0.1 % topical cream PLEASE SEE ATTACHED FOR DETAILED DIRECTIO NS active Not Available Not Available No t Available alprazola m 0.5 mg tablet TAKE 1 TABLET 2 HOURS BEFORE THE PROCEDUR E. 11/26 completed Not Available Not Available Not Available biotin 10,000 mcg capsule active Not Available Not Available Not Available Viki-D 12 Hour 60 mg-120 mg tablet,ex tended release take 1 tablet by oral route 2 times every day 02/10 completed Prescrib ed Elsewher e: Yes Loca tion: [facility] odify By: valery Montes ncoluis eduardo DateTime : 04/15/20 11 03:00:00 PM Not Available Not Available Not Available Novolog U-100 Insulin aspart 100 unit/mL subcutane ous solution INJECT 30-40 UNITS SUBCUTAN EOUSLY EVERY DAY VIA INSULIN PUMP active Not Available Not Available No t Available Vitamin D2 1,250 mcg (50,000 unit) capsule take 1 capsule by oral route every week 09/21 completed Prescrib ed Elsewher e: No Locat ion: [facility] odify By: valery brewer DateTime : 02/28/20 15 03:32:28 PM Not Available Not Available Not Available ondansetr on 4 mg disintegr ating tablet DISSOLVE 1 TABLET BY MOUTH EVERY 8 HOURS 06/11 completed Not Available Not Available Not Available multivita min capsule active Not Available Not Available Not Available naproxen 500 mg tablet active Not Available Not Available Not Available iron 65 mg tablet active Not Available Not Available No t Available Fish Oil 500 mg capsule active Not Available Not Available Not Available rosuvasta tin 5 mg tablet 06/11 completed Not Available Not Available Not Available vitamin E active Not Available Not Kourtney ilable Not Available Fish Oil 01/26 completed Not Available Not Available Not Available iron 01/26 completed Not Available Not Available Not Available Vitamin D3 01/26 completed Not Available Not Available Not Available Chlor-Tri meton 01/26 completed Not Available Not Available Not Available Novolog FlexPen U-100 Insulin 01/13 completed Not Available Not Available Not Available Vitamin D-3 with Aloe 120 mg-1,000 unit-10 mg tablet active Not Available Not Available No t Available B12 active Not Available Not Availa ble Not Available Lo Loestrin Fe 1 mg-10 mcg (24)/10 mcg (2) tablet TAKE 1 TABLET BY MOUTH EVERY DAY 12/22 completed Not Available Not Available Not Available Contour Next Test Strips TESTS 4 TIMES A DAY 01/13 completed Not Available Not Available Not Available Multi Vitamin 01/26 completed Not Available Not Available Not Available ferric carboxyma ltose 50 mg iron/mL intraveno us solution active Not Available Not Available Not Available iron 15 mg iron (75 mg)/mL oral drops 07/19 completed Prescrib ed Elsewher e: Yes Loca tion: [facility] odify By: lyric brewer DateTime : 04/09/20 16 03:30:00 PM Not Available Not Available Not Available Super B Maxi Complex 0.4 mg tablet active Not Available Not Available Not Available Super B Maxi Complex 01/26 completed Not Available Not Available Not Available Dexcom G6 Transmitt er device USE TO MONITOR GLUCOSE CHANGE EVERY 3 MONTHS active Not Available Not Available No t Available Baqsimi 3 mg/actuat ion nasal spray 06/11 completed Not Available Not Available Not Available Paxlovid 300 mg (150 mg x 2)-100 mg tablets in a dose pack 06/11 completed Not Available Not Available Not Available Dexcom G7 Sensor device CHANGE EVERY 10 DAYS active Not Available Not Available No t Available Vitals Date Recorded Body height Body mass index (BMI) Body weight Systolic blood pressure Diastolic blood pressure Provider Name and Address Organization Details Last Updated DateTime 09/06/2022 160.02 cm 23.4 kg/m2 14010.19 g 123 mm[Hg] 63 mm[Hg] Paige [facility] 3 10:09:07 Date Recorded Body height Body mass index (BMI) Body weight Systolic blood pressure Diastolic blood pressure Provider Name and Address Organization Details Last Updated DateTime 11/21/2022 160.02 cm 23.4 kg/m2 96865.19 g 129 mm[Hg] 71 mm[Hg] Paige [facility] 3 10:29:40 Date Recorded Body height Body mass index (BMI) Body weight Systolic blood pressure Diastolic blood pressure Provider Name and Address Organization Details Last Updated DateTime 11/26/2022 160.02 cm 23.9 kg/m2 40215.97 g 109 mm[Hg] 68 mm[Hg] Paige [facility] 3 17:22:55 Date Recorded Body height Body mass index (BMI) Body weight Systolic blood pressure Diastolic blood pressure Provider Name and Address Organization Details Last Updated DateTime 06/11/2023 160.02 cm 24 kg/m2 95301.13 g 118 mm[Hg] 74 mm[Hg] Tran Soto [facility] 3 16:34:09 Social History Question Answer Notes LastModified by Organizat ion Details LastModified Time Tobacco Smoking Status Former [facility] 11/21/2022 10:29:46 Do You Have An Advance Directive? No [email or web address] Information not available 11/23/2020 What Is Your Level Of Alcohol Consumption? Occasional [id number] Information not available 04/17/2020 If You Are , What Was Your Level Of Alcohol Consumption Prior To ? None Information not available 11/21/2022 How Many Years Have You Consumed Alcohol? 3 Information not available 11/21/2022 Are You Blind Or Do You Have Difficulty Seeing? No [email or web address] Information not available 11/23/2020 What Is Your Level Of Caffeine Consumption? None [email or web address] Information not available 11/23/2020 How Much Tobacco Do You Chew? None [email or web address] Information not available 11/23/2020 In The 14 Days Before Symptom Onset, Have You Had Close Contact With A Laboratory-confir med COVID-19 While That Case Was Ill? No [email or web address] Information not available 11/23/2020 In The 14 Days Before Symptom Onset, Have You Had Close Contact With A Person Who Is Under Investigation For COVID-19 While That Person Was Ill? No [email or web address] Information not available 11/23/2020 Have You Been To An Area Known To Be High Risk For COVID-19? No [email or web address] Information not available 11/23/2020 Are You Deaf Or Do You Have Serious Difficulty Hearing? No [email or web address] Information not available 11/23/2020 What Type Of Diet Are You Following? [email or web address] Information not available 11/21/2022 What Is The Highest Grade Or Level Of School You Have Completed Or The Highest Degree You Have Received? [id number] [email or web address] Information not available 11/23/2020 What Is Your Occupation? [employer] [email or web address] Information not available 11/23/2020 Are There Any Guns Present In Your Home? No Information not available 11/23/2020 What Was The Date Of Your Most Recent Tobacco Screening? 10/07/2019 Information not available 11/21/2022 Have You Ever Been Counseled For Unhealthy Alcohol Use? No Information not available 11/21/2022 Do You Use Protection During Sex? No [email or web address] Information not available 11/23/2020 Do You Use Your Seat Belt Or Car Seat Routinely? Yes [email or web address] Information not available 11/23/2020 Do You Have Smoke And Carbon Monoxide Detectors In Your Home? Yes [email or web address] Information not available 11/23/2020 At What Age Did You Start Smoking Tobacco? 17 [email or web address] Information not available 11/23/2020 How Much Tobacco Do You Smoke? No [email or web address] Information not available 11/23/2020 Do You Feel Stressed (tense, Restless, Nervous, Or Anxious, Or Unable To Sleep At Night)? [id number] [email or web address] Information not available 11/23/2020 Do You Use Any Illicit Or Recreational Drugs? No [email or web address] Information not available 11/23/2020 Do You Use Sunscreen Routinely? No [email or web address] Information not available 11/23/2020 How Many Years Have You Smoked Tobacco? 10 [email or web address] Information not available 11/23/2020 Have You Used IV Drugs? No [email or web address] Information not available 11/23/2020 Sex: Unknown Functional Status Question Answer Note LastModified by Organizat ion Details LastModified Time Do you have difficulty walking or climbing stairs? No Information not available 11/21/2022 Are you able to walk? [email or web address] Information not available 11/23/2020 Are you able to care for yourself? Yes Information not available 11/21/2022 Do you have difficulty dressing or bathing? No Information not available 11/21/2022 What is your exercise level? Moderate Information not available 11/21/2022 Mental Status None recorded. Family History Relationship Description Onset Age of this Age Resolved Age Notes LastModified by Organization Details LastModified Time Paternal Aunt Diabetes mellitus [email or web address] Not available 2021 16:37:53 Mother Arthritis [email or web address] Not availabl e 06/11/2023 16:10:39 Mother Eccrine ductal carcinoma [email or web address] Not available 2022 16:10:39 Father Diabetes mellitus [email or web address] Not available 2021 16:37:53 Father Hypertensive disorder [email or web address] Not available 2021 16:37:53 Medical History Condition Response Allergies (Food, seasonal, environmental ) N Other N Breast Cancer N Drug/Latex Allergies/Reactions N Blood Transfusion N Dermatologic Disorders N Lung Disease N Defects or Inherited Disease N Breast Problem N Gestational Diabetes N Hematologic disorders N Anesthesia Complications N History of STI N Deep Vein Thrombosis N Polycystic ovary syndrome N Anxiety Disorder N Autoimmune disease N Arthritis N Infertility N Polyps N Acid Reflux (GERD) N History of abnormal pap N Cancer N Stroke N Varicosities N Neurologic/Epilepsy N Endometriosis N High Cholesterol N Headaches N Fibromyalgia N Kidney Disease N Heart Problems N Kidney or Bladder Problems N Thyroid Problems N GI Problems N Eating Disorder N Anemia N Art (IVF or FET) N Psychiatric Illness N Ovarian Cancer N Diabetes N Pulmonary (TB, Asthma) N Hepatitis/Liver Disease N No Past Medical History N Eczema N Urinary Tract Infection N Abuse/Domestic Violence N Asthma N Trauma/Violence N Depression/ depression N Heart Disease N Pre-Eclampsia N Hypertension N Osteoporosis N Thrombophilias N Gynecological History Statement/Question Response Flow Moderate Date of Last Mammogram 10/30/2021 Date of LMP 06/18/2022 N Was last menstrual period normal N STIs/STDs N HPV Vaccine N Duration of Flow (days) 14 Current Control Method Tubal Ligat ion Are cycles usually normal N Sexually Active? Y BCPs Menses Monthly Y Age of first menstrual cycle 19 Date of Last Pap Smear 11/23/2020 Sexual Problems? Y Desired Control Method Ablation LMP Approximate N Obstetrics History GPAL:G 2 P 1 1 0 2 Type Value Full Term 1 Premature 1 Living 2 Total 2 Past Encounters Encounter ID Performer Location Encounter Start Date Encounter Closed Date Diagnosis/Indication Diagnosis SNOMED-CT Code Diagnosis ICD10 Code Diagnosis Note [id number] Sandeep Simmons MD [facility] [address] [address] 10/06/2019 16:10:26 10/06/2019 16:51:07 Dyspareunia 59592362 N94.10 [id number] Ely David CNM [facility] [address] [address] 10/07/2019 15:43:41 10/07/2019 17:15:49 Gynecologic examination 86592735 Z01.419 [id number] Isi Childs MD [facility] [address],[place] [address] 10/27/2019 16:06:00 10/27/2019 16:48:38 Menorrhagia 383334773 N92.0 We discussed options, and she prefers to try OCP. She denies h/o hypertensi on or VTE. She quit smoking in 2003. No known contraindi cation to combinatio n OC. We reviewed risks and side effects including HTN, VTE, stroke, irregular bleeding, DOBSON, nausea, breast tenderness . She expressed understand ing and wishes to start. Start 2-3 days after start of next period. Return in 2-3 months for medication check Uterine leiomyoma [id number] D25.9 Two small (0.7 and 1.48 cm fibroids). May be contributi ng to heavy cycles and less likely to be causing pain. She would still be a candidate for ablation if periods don't respond to OCP Deep pain on intercourse [id number] N94.12 Possibly related to fibroids or sensitive ovaries. It is not severe and not with every intercours e, so we agreed to watch and wait [id number] Elvie العلي , [facility] [address],[place] [address] 01/27/2020 15:59:34 01/27/2020 16:47:57 Secondary dysmenorrhea [id number] N94.5 Patient is here today for a medicaton check of control. She voices goals of therapy have been met with use of this therapy. She denies neg side effects. She is eating, drinking, sleeping well; moods are stable & periods are well regulated. Wishes to continue this method of BC. Appropriat e to continue this medication . [id number] Ely David CNM [facility] [address],[place] [address] 11/23/2020 16:19:49 11/24/2020 17:03:34 Gynecologic examination [id number] Z01.419 [id number] Elvie العلي [facility] [address],[place] [address] 01/13/2022 16:23:40 01/13/2022 17:13:04 Gynecologic examination [id number] Z01.419 Suggested Calcium with Vitamin D 1200-1500m g daily. Patient advised to get an annual flu shot in the fall and she could obtain at [facility] or [facility] care clinic. Also to obtain TDap vaccinatio n if you have not had one in the last 10 years. Recommend yearly mammograms . Encouraged monthly self breast exams. Encourage safe sexual practices, to use condoms and limit partners if not already in a monogamous relationsh ip. Engage in daily exercise of low impact aerobic exercise 45-60 minutes 4-5 times weekly. Avoid tobacco and illicit drugs as well as using moderation with alcohol intake less than 1-2 8 oz beverages daily. This lifestyle behavior pattern will lead to less health conditions and longer life span. If BMI greater than 25 weight watchers or dietary consult advised. All questions have been answered. Patient appears to understand informatio n, but if you have any questions please call or respond to this email. Pap/hpv sentSTD Screen declinedGe netic Screen discussedC olon Screen UTD PCPDexa Screen naRoutine Labs UTD PCPMammo completed wnlTubal ligation [id number] Elvie العلي , [facility] [address],[place] [address] 07/19/2022 09:54:40 07/21/2022 10:52:14 Irregular periods 13962096 N92.6 Today we agreed to update US for reassuranc e.Labs recently completed at PCP reported to be WNL.Will keep menstrual diaryWill reach out with US results & let her know if f/u is required.I f wnl will keep menstrual diary & if pattern continues further evaluation will be completed (i.e. repeat labs etc). Time spent in visit is a total of 15 mins with at least 50% of visit consisting of counseling and review of plan of care. [id number] Sandeep Simmons MD [facility] [address],[place] [address] 07/22/2022 17:13:39 07/23/2022 14:56:39 Irregular periods [id number] N92.6 [id number] Sandeep Simmons MD [facility] [address],[place] [address] 09/06/2022 09:28:41 09/10/2022 15:06:27 Lesion of endometrium [id number] 9101 N85.9 this patient is a 51-year-ol d female with irregular bleeding and menorrhagi a. She presents for ultrasound follow-up. We reviewed her ultrasound results. We shared images. We spent over 40 minutes face-to-fa ce. More than 50% was counseling . We talked about her symptoms. We talked about ultrasound results proved talked about treatment options. I recommende d that she have the polyp resected. And also offered her endometria l ablation. We talked about these things in detail , how there were done and where they could be done in. we agreed to move forward with hysterosco py D&C with possible polypectom y in the office. She was prescribed medication s for pain For preoperati ve preparatio n. Procedure will be scheduled. We made a decision to perform the procedure. Menorrhagia [id number] N9 2.0 Abnormal u terine bleeding [id number] 9100 N93.9 [id number] Sandeep Simmons MD [facility] [address],[place] [address] 11/21/2022 09:53:13 11/21/2022 15:51:33 Screening procedure [id number] Z13.9 Polyp of corpus uteri 11 513206 N84.0 Menorrhagia [id number] N9 2.0 endometria l ablation polypectom y were performed. She tolerated well. [id number] Sandeep Simmons MD [facility] [address] [address] 11/26/2022 17:03:31 11/26/2022 18:09:38 Polyp of corpus uteri [id number] N84.0 this patient is a 52-year-ol d female who presents for follow-up for endometria l lesion. She had a polyp excised about 1 week ago. She has no complaints . We reviewed pathology. She will as needed. We will observe bleeding, if bleeding persists we will treat. [id number] JANIS Juarez [facility] [address],[place] [address] 06/11/2023 16:10:10 06/11/2023 16:57:39 Gynecologic examination [id number] Z01.419 WWEhx of BTL/ablati onpap updatedSTI screening declinedma mmogram order renetta carreon UTDroutine labs UTD/PCPRTC in 1 yr or sooner if needed Take Calcium with Vitamin D daily. Do monthly self breast exams. It is advised to get annual flu shot in the fall and she could obtain at [facility] or [facility] care clinic. If you haven't received the Tdap vaccine in the last 10 years you should obtain one as well. Have mammogram yearly, bone density every 2-3 years and colonoscop y every 5-10 years depending on findings and history. Engage in daily exercise of low impact aerobic exercise 45-60 minutes 4-5 times weekly. Avoid tobacco and illicit drugs. This lifestyle behavior pattern will lead to less health conditions and longer life span. If BMI greater than 25 dietary consult advised. Questions have been answered. Patient appears to understand instructio ns, but if you have any further questions call or respond to this email Screening for malignant neoplasm of breast [id number] Z12.39 Health Concerns Section Related Observation LastModified by Organization Detai ls LastModified Time None Recorded Concern Status LastModified by Organization Details LastModified Time None Recorded Advance Directives Directive N: Payers Encounter Date Sequence Insurance Name Policy Number Policy Monk Covered Member ID Monk Member ID Guarantor Name 07/22/2022 1 [employer] [id number] Beth L Matilde [id number] Beth L Matilde 09/06/2022 1 [employer] [id number] Beth L Matilde [id number] Beth L Matilde 11/21/2022 1 [place] [id number] Beth L Matilde [id number] Beth L Matilde 11/26/2022 1 [place] [id number] Beth L Matilde [id number] Beth L Matilde 06/11/2023 1 [place] [id number] Beth L Matilde [id number] Beth L Matilde Notes Date Note Type Note Provider Name and Address Organization Details Recorded Time 09/06/2022 text/html this patient is a 51-year-old female with irregular bleeding and menorrhagia. She presents for ultrasound follow-up. We reviewed her ultrasound results. We shared images. We spent over 40 minutes wedb-od-kyup. More than 50% was counseling. We talked about her symptoms. We talked about ultrasound results proved talked about treatment options. I recommended that she have the polyp resected. And also offered her endometrial ablation. We talked about these things in detail , how there were done and where they could be done in. we agreed to move forward with hysteroscopy D&C with possible polypectomy in the office. She was prescribed medications for pain For preoperative preparation. Procedure will be scheduled. We made a decision to perform the procedure. Sandeep Simmons MD [address], [place], [address], [facility] 09/09/2022 22:41:47 11/21/2022 text/html patient presents for endometrial ablation and polypectomy. Sandeep Simmons MD [address], [place], [address], [facility] 11/21/2022 15:31:18 11/26/2022 text/html this patient is a 52-year-old female who presents for follow-up for endometrial lesion. She had a polyp excised about 1 week ago. She has no complaints. We reviewed pathology. She will as needed. We will observe bleeding, if bleeding persists we will treat. Sandeep Simmons MD [address], [place], [address], [facility] 11/26/2022 18:08:06 06/11/2023 text/html Annual GYNReport ed bypatient.Menstrua l cycle:Normal menses Urinary symptoms:No hematuria; No incontinence Vulva:No genital lesion Vagina:Normal vaginal discharge Breast:No breast pain; No breast lump; No nipple discharge Current Contraception:Sati sfied with current contraception; Tubal ligation Sexual complaints:No sexual complaints; No pain during intercourse; Normal libido Menopausal Symptoms:No menopausal symptoms; Normal vaginal lubrication Psychological symptoms:No depression; No anxiety; No PMDD Preventive measures:Encourage self breast examination; Encourage regular exercise; Encourage no tobacco use; Encourage regular mammograms starting age 40; Needs to schedule mammogram; Up to date on colonoscopy screeningNotes:santino y light/monthly period since ablation 11/2022hx of abnormal pap years ago, no procedures required - last pap 01/13/2022 nilm, HPV (-)mammogram olonoscopy 2021 JANIS Juarez [address], [place], [address], [facility] 06/11/2023 16:53:49 OBGyn Episode Ob Episode Information Episode Created Date Number of Fetuses Patient Bloodtype Patient rh Status Prepregnancy Weight lbs Domestic Partner Domestic Partner Phone Father Name Press Manager Status 10/07/19 20 1 CLOSED Fetus Data First Name Last Name Admitted to NICU Weight (g) Sex Living Outcome Pediatric Complications Fetus ID Race Codes Race Delivery Type 2721.55 2 M Full Term 810 Vaginal Delivery Yann Calculation Initial Yann Date Initial Exam Date Initial Exam Provider Initial Ultrasound Date Last Menstrual Period Date Ultra Sound Weeks Gestation 0 Eighteen To Twenty Week Yann Update Ultra Sound Date Fundal Height At Umbil Quickening Date Ultra Sound Latest Weeks Gestation Final Yann Confirmed By Final Yann Confirmed Date Final Yann Date Ultra Sound Latest Days Gestation 0 0 Menstrual History Last Menstrual Date Menses Monthly On Bcp Conception Prior Menses Frequency Hcg Plus Date Menarche Onset Age Delivery Information Delivery Date Delivery Type Labor Anesthesia Weeks Gestation Incision Type Labor Labor Length Hrs Delivered By Post Complications Tubal Sterilization Discharge Date Comments 3 40 Randall Discharge Information Feeding Method Contraceptive Method Maternal HG B and HCT Levels Ob Episode Information Episode Created Date Number of Fetuses Patient Bloodtype Patient rh Status Prepregnancy Weight lbs Domestic Partner Domestic Partner Phone Father Name Press Manager Status 10/07/19 20 1 CLOSED Fetus Data First Name Last Name Admitted to NICU Weight (g) Sex Living Outcome Pediatric Complications Fetus ID Race Codes Race Delivery Type 907.184 M Prematur e 811 Vaginal Delivery Yann Calculation Initial Yann Date Initial Exam Date Initial Exam Provider Initial Ultrasound Date Last Menstrual Period Date Ultra Sound Weeks Gestation 0 Eighteen To Twenty Week Yann Update Ultra Sound Date Fundal Height At Umbil Quickening Date Ultra Sound Latest Weeks Gestation Final Yann Confirmed By Final Yann Confirmed Date Final Yann Date Ultra Sound Latest Days Gestation 0 0 Menstrual History Last Menstrual Date Menses Monthly On Bcp Conception Prior Menses Frequency Hcg Plus Date Menarche Onset Age Delivery Information Delivery Date Delivery Type Labor Anesthesia Weeks Gestation Incision Type Labor Labor Length Hrs Delivered By Post Complications Tubal Sterilization Discharge Date Comments 4 32 true Missael - labor Discharge Information Feeding Method Contraceptive Method Maternal HG B and HCT Levels
== END 2024-10-14 14:38 | disposition home or self-care (01) ==
PROVIDERS: Emergency Provider Emergency Medicine; PCP Family Medicine Adolescent Medicine
DX: E10.649 Type 1 diabetes mellitus with hypoglycemia without coma (principal); N39.0 Urinary tract infection, site not specified; E10.40 Type 1 diabetes mellitus with diabetic neuropathy, unspecified; E10.69 Type 1 diabetes mellitus with other specified complication; E78.5 Hyperlipidemia, unspecified; Z79.4 Long term (current) use of insulin; Z96.41 Presence of insulin pump (external) (internal)
CPT/HCPCS: 36415; 80048; 81001; 82948; 85025; 87077; 87086; 87186; 96365; 96375; 99284; J0696